=== PATIENT | male | born 1950 | race Caucasian/White ===

== ENCOUNTER 2018-06-27 09:19 | Emergency (ER) | payer MEDICARE ==
[~2018-06-27] VITALS: Ht 205.7 cm; Wt 65.8 kg
== END 2018-06-27 09:56 | disposition home or self-care (01) ==
LOC: ED 09:19
DX: G89.29 Other chronic pain (principal); M54.5 Low back pain; Z88.8 Allergy status to other drugs, medicaments and biological substances